=== PATIENT | female | born 2000 | race Caucasian/White ===

== ENCOUNTER 2019-07-17 21:56 | Emergency (ER) | payer OTHER, MEDICAID ==
[~2019-07-17] VITALS: Ht 167.6 cm; Wt 73.5 kg
[2019-07-17] MEDS ORDERED: AMOXICILLIN875 MG PO (22:29)
[2019-07-17] MEDS ORDERED: CIPRODEX OTIC7.5 ML OTIC (22:29)
[2019-07-17 22:42] VITALS: BP 132/86
== END 2019-07-17 22:44 | disposition home or self-care (01) ==
LOC: M.ERS 21:56
DX: H60.91 Unspecified otitis externa, right ear (principal)